=== PATIENT | female | born 1990 | race Caucasian/White ===

== ENCOUNTER 2018-09-29 23:01 | Emergency (ER) | payer OTHER, SELFPAY ==
[2018-09-29 23:12] VITALS: BP 118/71; PULSE 76; RESP 16; TEMP 36.6; O2SAT 97
--- NOTE | 2018-09-29 23:19 | ED.GENADUL_ITS ---
Discharge Plan Disposition Patient Disposition: HOME Condition: Stable Discharge Details Chief Complaint: Sorethroat Clinical Impression: Acute pharyngitis Primary Care Provider: Antonio Curtis ED Provider: David Tom Home Meds and New Rx's Prescriptions: No Action ranitidine HCl [Zantac] 300 MG tablet 300 mg PO BID Qty: 60 RF: 0 Discharge Instructions Instructions: Pharyngitis (ED) Medical Decision Making 28-year-old female with 2 days of sore throat. She is otherwise well, tolerating secretions, no change to voice. Rapid strep test obtained and negative. Discussed with patient that a small burst of anti-inflammatories will aid in decreasing her discomfort. As she is breast-feeding dexamethasone is not the best choice and will place her on 3 days of prednisone. She is stable and appropriate for discharge to home HPI General Mode of arrival: ambulatory . Date/Time Provider Initiated Documentation: 09/29/18 23:01 . Limitations to Documentation: no limitations . Information obtained by: patient . History of Present Illness 28 year old F presents to the emergency department with the chief complaint of Sore throat x2, described as moderate, Quality is described as dull and constant, and is localized to the mouth. Patient reports no radiation. Patient started experiencing this day(s) and it has been constant. No relieving factors improve symptom(s), No exacerbating factors reported . Patient notes no other symptoms.. Patient did receive the following treatments prior to arrival, none Related Data Home Medications Medication Instructions Recorded Confirmed ranitidine HCl [Zantac] 300 mg PO BID #60 tab 01/04/16 09/29/18 Previous Rx's Medication Instructions Recorded ranitidine HCl [Zantac] 300 mg PO BID #60 tab 01/04/16 Allergies Allergy/AdvReac Type Severity Reaction Status Date / Time No Known Allergies Allergy Unverified 09/29/18 23:15 General Stated Complaint: Sorethroat YAA: 4 Review of Systems Review of Systems No fever, no known sick contacts, no recent travel. 5 systems reviewed and otherwise negative [facility] Surgical History EGD - IV Sedation (01/04/16) Social History Smoking/Tobacco Use Status: Never Drug use: Never Do you feel safe at home: Yes Do you feel safe in your relationship?: Yes Exam Narrative Exam Narrative: GEN: awake, alert, oriented 3. Pleasant, well groomed, interactive. HEAD: Normocephalic, atraumatic ENT: Mucous membranes moist, oropharynx with erythematous tonsillar pillars, uvula midline, no asymmetry, External ear exam unremarkable, tympanic membranes pearlescent with good light reflex leo EYES: PERRL, EOMI NECK: Full ROM, no JOHNNY, no menigismus CHEST/RESP: Nontender, clear to auscultation bilateral, no wheeze/rhonchi/rales EXT: Full ROM, no edema, no rash Neuro: Grossly normal neurologic exam, conversant, interactive. Psych: Speech fluent, thoughts congruent, affect normal Course Vital Signs Temperature 36.6 C 09/29/18 23:12 Pulse 76 09/29/18 23:12 Respiratory Rate 16 09/29/18 23:12 Blood Pressure 118/71 09/29/18 23:12 Pulse Oximetry 97 09/29/18 23:12 Temperature 36.6 C 09/29/18 23:12 Temperature Source Skin 09/29/18 23:12 Pulse 76 09/29/18 23:12 Respiratory Rate 16 09/29/18 23:12 Respiratory Effort Non-Labored 09/29/18 23:14 Blood Pressure 118/71 09/29/18 23:12 Blood Pressure Position Sitting 09/29/18 23:12 Pulse Oximetry 97 09/29/18 23:12 Oxygen Delivery Method Room Air 09/29/18 23:12 Oxygen Flow Rate 0 09/29/18 23:12 Pain Level 8 09/29/18 23:12
[2018-09-29] MEDS: predniSONE 20 MG TAB 40 MG PO (23:43)
== END 2018-09-29 23:46 | disposition home or self-care (01) ==
PROVIDERS: Emergency Provider Emergency Medicine; PCP Specialist/Technologist Athletic Trainer
DX: J02.9 Acute pharyngitis, unspecified (principal)
CPT/HCPCS: 87880; 99283; 87081; J7512

== ENCOUNTER 2018-10-08 16:04 | Outpatient (REF) | payer OTHER, SELFPAY | END 2018-10-08 16:24 | LOC: NCHCN 16:04 | PROVIDERS: PCP Specialist/Technologist Athletic Trainer; Visit Provider Nurse Practitioner Family | DX: J03.90 Acute tonsillitis, unspecified (principal) | CPT/HCPCS: 87070 ==

== ENCOUNTER 2018-11-30 19:34 | Outpatient (REF) | payer OTHER, SELFPAY ==
[2018-11-30 19:52] LABS: Anion Gap 11.3 mmol/L (3-11); BUN 14 mg/dL (7-18); CO2 25.7 mmol/L (21.0-32.0); CREATININE 0.67 mg/dL (0.55-1.02); Calcium 8.9 mg/dL (8.5-10.1); Chloride 103 mmol/L (98-107); Cholesterol 181 mg/dL (50-200); Glucose 75 mg/dL (70-100); HDL Cholesterol 89 mg/dL (40-60); Potassium 3.9 mmol/L (3.5-5.1); Sodium 140 mmol/L (136-145)
[2018-11-30 20:10] LABS: Triglyceride < 25 mg/dL (30-150)
[2018-11-30 20:21] LABS: LDL CHOLESTEROL 82 mg/dL (<100)
== END 2018-11-30 19:54 ==
LOC: NCHCN 19:34
PROVIDERS: PCP Specialist/Technologist Athletic Trainer; Visit Provider Specialist/Technologist Athletic Trainer
DX: Z00.00 Encounter for general adult medical examination without abnormal findings (principal); Z13.220 Encounter for screening for lipoid disorders; Z13.228 Encounter for screening for other metabolic disorders
CPT/HCPCS: 80048; 80061; 83721

== ENCOUNTER 2019-01-01 07:10 | Day surgery (SDC) | payer OTHER, SELFPAY ==
--- NOTE | 2019-01-01 06:54 | W.PM.ENDDOP ---
Date of service: 01/01/19 Time of Service: 08:38 Endoscopy Report DATE OF PROCEDURE: 01/01/19 PRE-OP DIAGNOSIS: Hx of Moran's POST-OP DIAGNOSIS: same (Hiatal hernia and esophagitis) PROCEDURE: EGD with biopsies SURGEON: Carolina Berger ANESTHESIA: other (General/ ASA 2/Nestor Sow CRNA) ESTIMATED BLOOD LOSS: 3 PATHOLOGY: other (GE junction bx) COMPLICATIONS: None DISPOSITION: same day INDICATIONS: Mrs. Martell is a pleasant 28 year old female with a history of Moran's who was seen in the office for a surveillance EGD. Risks, benefits and complications have been reviewed. Complications include but are not limited to bleeding, pain, perforation, sore throat, aspiration, and adverse reaction to the medications. Questions were entertained and answered to their satisfaction and they wished to proceed. No guarantees were given or implied. FINDINGS: Hiatal hernia -sliding Esophagitis Moran's PROCEDURE DESCRIPTION: After informed consent was obtained the patient was take to the procedure room and placed in a supine position. Monitors were applied and a time out was done. The patients name, date of , procedure type, allergies to medications and metal in their body was reviewed. A bite block was placed and the patient was sedated. Once sedated and comfortable the gastroscope was advanced through the oropharynx which was grossly normal into the esophagus. The proximal and mid-esophagus were normal. In the distal esophagus there was inflammation noted. The scope was advanced into the stomach and through the pylorus into the 3rd portion of the duodenum. The duodenum was noted to be normal. The scope was retracted back into the stomach which was normal. There were no ulcers. The scope was retro-flexed. The cardia and fundus were noted to be normal. There was a hiatal hernia noted. The scope was retracted back into the esophagus and biopsies were done of the GE junction. There was inflammation noted. There were streaks of inflammation noted that measured 2 cm. The Z line was irregular. The GE junction was at 30 cm. The scope was removed and the patient was woken up and taken back to [facility] in stable condition. Follow up: 2 weeks. Patient is asymptomatic on Zantac. Depending on pathology I think she would benefit from pH study and manometry. She is young and may benefit from a anti-reflux procedure. I will discuss with her when she comes to see me in the office in 2 weeks.
--- NOTE | 2019-01-01 07:02 | W.PM.DSUDISC ---
Discharge Plan Disposition Patient Disposition: HOME Condition: Good Discharge Details Reason For Visit: hx of Moran's/ EGD Attending Provider: Carolina Berger Primary Care Provider: Antonio Curtis Home Meds and New Rx's Prescriptions: Continued ranitidine HCl [Zantac] 300 MG tablet 300 mg PO BID Qty: 60 RF: 0 Discharge Instructions Instructions: Upper Endoscopy (DC), Moran Esophagus (DC), Hiatal Hernia (DC) Additional Instructions: Findings: esophagitis and Hiatal hernia Follow up: 2 weeks Please call if you develop: fevers >101.5 Nausea or Vomiting Abdominal pain that is not transient DAY SURGERY UNIT POST ENDOSCOPY INSTRUCTIONS 1. Because there will be medication in your system for the next 24 hours, you may feel a little sleepy. Your coordination will be affected. Therefore: a. Do not drive or operate dangerous equipment for 24 hours. b. Do not drink alcohol beverages for 24 hours (not even beer). c. Plan to go home and rest for the day. 2. Generally there are no restrictions on your activity after a day or so has gone by, but you may feel a bit fatigued for a few days. 3 After you arrive home you may have a light meal and return to a normal diet as you can tolerate it without feeling sick to your stomach. 4. After surgery, you may feel pain or discomfort. This should be only transient, but if it persists please contact your doctor. 5. If there are any questions regarding the findings of your procedure, please feel free to contact your doctor. 6. If you are unable to contact your doctor with a problem, contact the hospital at [phone]. 7. Continue all your regular medications unless directed otherwise. I understand the above instructions and have no questions. Signature of Patient or Responsible Adult Escort Date/Time Name of Responsible Adult Escort Signature of Nurse Date/Time Activity:: Activity as Tolerated Diet:: As Tolerated Discharge Orders Discharge Orders: Discharge Order (Routine); Ordered 01/01/19 Ordered By: Carolina Berger DS: Diagnosis Discharge Diagnosis (1) EGD - IV Sedation: Status: None (2) Barretts esophagus: Status: Acute
[2019-01-01 07:35] VITALS: BP 106/67; PULSE 84; RESP 16; TEMP 36.4; O2SAT 98
[2019-01-01 07:38] VITALS: BP 106/67; PULSE 84; RESP 16; TEMP 36.4; O2SAT 98
[2019-01-01] MEDS: Lactated Ringers 1,000 ML 80 ML IV (07:55)
--- NOTE | 2019-01-01 08:40 | ESO_PTH ---
PATIENT: Rosenda Martell LOC: [facility] U#:[id number] AGE/SX: 28/F ROOM: RE01/01/[address]: Carolina Berger MD : 1990 BED: DIS: 01/01/2019 SPEC #: [id number] RECD: 01/01/19 12:52 STATUS: MARCO A REQ #: [id number] CHAYA: 01/01/19 08:[address]: Carolina Berger DEPT: Surgical Specimen RECD BY: Alba Iraheta ENTERED: 01/01/19 12:52 SP TYPE: Eso OTHR DR: Antonio Curtis Tissues: 1 - ESOPHAGUS BIOPSY Procedures: GROSS AND MICRO LEVEL 4 Comments: [id number]
[2019-01-01 09:25] VITALS: BP 105/63; PULSE 74; RESP 16; TEMP 36.4; O2SAT 99
== END 2019-01-01 09:55 | disposition home or self-care (01) ==
LOC: SUR 07:10
PROVIDERS: PCP Specialist/Technologist Athletic Trainer; Visit Provider Surgery
PROC: 0DJ68ZZ Inspection of Stomach, Via Natural or Artificial Opening Endoscopic (ICD-10-PCS; CPT 43235; principal; 2019-01-01 08:30)
DX: K22.70 Barrett's esophagus without dysplasia (principal); K21.0 Gastro-esophageal reflux disease with esophagitis; K44.9 Diaphragmatic hernia without obstruction or gangrene
CPT/HCPCS: 43239; 81025; 88305

== ENCOUNTER 2021-02-25 03:33 | Outpatient (CLI) | payer OTHER, SELFPAY ==
[2021-02-25 09:51] LABS: ALT 28 U/L (14-59); AST 15 U/L (15-37); Alkaline Phosphatase 90 U/L (46-116); Anion Gap 8.7 mmol/L (3-11); BUN 14 mg/dL (7-18); Bilirubin, Total 0.4 mg/dL (0.2-1.0); CO2 29.3 mmol/L (21.0-32.0); CREATININE 0.7 mg/dL (0.55-1.02); Chloride 103 mmol/L (98-107); Glucose 82 mg/dL (74-106); Potassium 4.2 mmol/L (3.5-5.1); Sodium 141 mmol/L (136-145); TSH (W/Ref FT4) 1.01 uIU/mL (0.36-3.74); Total Protein 7.3 g/dL (6.4-8.2)
== END 2021-02-25 03:34 | disposition home or self-care (01) ==
LOC: LBO 03:33
PROVIDERS: PCP Nurse Practitioner Family; Visit Provider Nurse Practitioner Family
DX: R74.8 Abnormal levels of other serum enzymes (principal)
CPT/HCPCS: 36415; 80053; 84443

== ENCOUNTER 2021-03-22 08:13 | Outpatient (CLI) | payer BC, SELFPAY ==
[2021-03-22 10:48] LABS: Source Nasal/Nares
[2021-03-22 14:39] LABS: COVID-19 PCR Negative (Negative)
== END 2021-03-22 08:14 | disposition home or self-care (01) ==
LOC: LBO 08:14
PROVIDERS: PCP Nurse Practitioner Family; Visit Provider Surgery
DX: Z20.822 Contact with and (suspected) exposure to COVID-19 (principal)
CPT/HCPCS: 87635

== ENCOUNTER 2021-05-21 01:25 | Outpatient (CLI) | payer BC, SELFPAY ==
[2021-05-21 11:49] LABS: Source Nasal/Nares
[2021-05-21 15:04] LABS: COVID-19 PCR Negative (Negative)
== END 2021-05-21 01:26 | disposition home or self-care (01) ==
LOC: LBO 01:25
PROVIDERS: PCP Nurse Practitioner Family; Visit Provider Surgery
DX: Z20.822 Contact with and (suspected) exposure to COVID-19 (principal)
CPT/HCPCS: 87635

== ENCOUNTER 2021-05-24 09:42 | Day surgery (SDC) | payer BC, SELFPAY ==
--- NOTE | 2021-05-24 06:53 | W.PREOPHP ---
Assessment and Plan Assessment and plan (1) GERD (gastroesophageal reflux disease): Status: Chronic Assessment and plan: Roesnda see me today to discuss another upper endoscopy.? She has had worsening reflux symptoms over the last few months.? In November she was switched to omeprazole 20 mg daily.? She takes this at night and this allows her to sleep.? She is still symptomatic during the day.? She has cut out acidic foods trying to improve her symptoms without much success.? Differential includes worsening reflux due to stress versus H. pylori infection.? Discussed repeating her EGD with biopsies. The patient is not vaccinated so we will test her for Covid and I have also asked her to quarantine between the time of her testing and the procedure. Risks, benefits and complications have been reviewed. Complications include but are not limited to bleeding, pain, perforation, sore throat, aspiration, and adverse reaction to the medications.? Questions were entertained and answered to their satisfaction and they wished to proceed. No guarantees were given or implied. EGD under sedation Qualifiers: Esophagitis presence: esophagitis presence not specified Qualified Code(s): K21.9 - Gastro-esophageal reflux disease without esophagitis (2) Moran's esophagus determined by biopsy: Status: Acute (3) Peptic reflux esophagitis: Status: Acute History of Present Illness Narrative: Rosenda is back to see me today because she has had worsening acid reflux symptoms.? The last time I saw her in 2018 she was noted to have some mild reflux and was asymptomatic with ranitidine 300 mg twice daily.? She eventually stopped the ranitidine because it was taken off the market and was switched over to famotidine 40 mg daily.? Over the last few months she has noted increased and reflux symptoms with continued heartburn during the day.? She was switched over to omeprazole 20 mg at night which does allow her to sleep but then she has symptoms during the day.? She has tried to switch her diet and remove acidic foods from it without much improvement in symptoms.? Her primary care physician did tell her that she could go up on the omeprazole to 20 mg twice daily but she has not done that yet.? She has no vomiting or nausea.? She has not had any changes in bowel habits.? She does complain of increased bloating and gas. No changes in her healths since she was last seen in February Review of Systems Constitutional Constitutional: Denies fever(s) and Denies headache(s) ENT Ears, Nose, Mouth, and Throat: Denies headache(s) Cardiovascular Cardiovascular: Denies chest pain, Denies irregular heart rhythm, Denies palpitations and Denies dyspnea Respiratory Respiratory: Denies cough and Denies dyspnea Gastrointestinal Gastrointestinal: Reports as per HPI Neurologic Neurologic: Denies headache(s) Endocrine Endocrine: Denies palpitations PFSH All Active Problems Elevated liver enzymes (Acute) GERD (gastroesophageal reflux disease) (Chronic) Moran's esophagus determined by biopsy (Acute ~2016) Peptic reflux esophagitis (Acute) Thoracic outlet syndrome (Acute) Trigeminal nerve disorder (Acute) Medical History Chronic headaches Enlarged thyroid Hyperemesis affecting , antepartum with each Surgical History EGD - IV Sedation (01/04/16) H/O esophagogastroduodenoscopy (~01/01/19) History of tubal ligation Social History Smoking/Tobacco Use Status: Never Smoking risk assessment performed?: Yes Alcohol Intake: current Alcohol Intake frequency: a few times a month Drug use: Never Substance use type: does not use Number of Children: 3 Current gender identity: female Do you feel safe at home: Yes Do you feel safe in your relationship?: Yes History History 3 Para Hx # Term Pregnancies 3 Multiple births Hx # Pregnancies Ectopic pregnancies AB induced Hx Number of Living Children AB spontaneous Meds Allergies and Home Medications Allergies Allergy/AdvReac Type Severity Reaction Status Date / Time No Known Allergies Allergy Verified 05/24/21 10:38 Home Medications Medication Instructions Recorded Confirmed Type multivitamin 1 tab PO DAILY 02/04/21 05/24/21 History omeprazole 20 mg capsule,delayed 20 mg PO DAILY 02/04/21 05/24/21 History release Exam Const General: cooperative, comfortable and no acute distress HENMT Head: normocephalic and atraumatic Resp Auscultation: clear to auscultation bilaterally Cardio Rate: regular rate Rhythm: regular rhythm
--- NOTE | 2021-05-24 06:59 | PDOC.DSDIS_ITS ---
Discharge Plan Disposition Patient Disposition: HOME Condition: Good Discharge Details Reason For Visit: EGD Attending Provider: Carolina Berger Primary Care Provider: Tatianna Galvin Home Meds and New Rx's Prescriptions: New omeprazole 40 mg capsule,delayed release(DR/EC) 40 mg PO DAILY Qty: 30 0RF Continued multivitamin Tablet 1 tab PO DAILY 0RF Discontinued omeprazole 20 mg capsule,delayed release(DR/EC) 20 mg PO DAILY 0RF Discharge Instructions Additional Instructions: Findings: inflammation of the esophagus Medication: Omeprazole 40 mg daily Please call if you develop: fevers >101.5 Nausea or Vomiting Abdominal pain that is not transient Rectal bleeding that is more then a tbsp A hard abdomen and inability to pass gas DAY SURGERY UNIT POST ENDOSCOPY INSTRUCTIONS Instructions for everyone who is given Anesthesia: For your safety, please do the following for the next 24 Hours: a. [address] not drive or operate dangerous equipment b. Do not drink alcohol beverages or use any recreational drugs for the first 24 hours or while taking pain medications. The medications in your body may have a reaction that can be dangerous. c. Do not make any important decisions or sign any important papers 1. Generally there are no restrictions on your activity after a day or so has gone by, but you may feel a bit fatigued for a few days. 2. After you arrive home you may have a light meal and return to a normal diet as you can tolerate it without feeling sick to your stomach. 3. After surgery, you may feel pain or discomfort. This should be only transie nt, but if it persists please contact your doctor. 4. If there are any questions regarding the findings of your procedure, please feel free to contact your doctor. 6. If you are unable to contact your doctor with a problem, contact the hospital at [phone]. 7. Continue all your regular medications unless directed otherwise. I understand the above instructions and have no questions. Signature of Patient or Responsible Adult Escort Date/Time Name of Responsible Adult Escort Signature of Nurse Date/Time Activity:: Activity as Tolerated Diet:: As Tolerated Discharge Orders Discharge Orders: Discharge Order (Routine); Ordered 05/24/21 Ordered By: Carolina Berger DS: Diagnosis Discharge Diagnosis (1) GERD (gastroesophageal reflux disease): Status: Chronic (2) Moran's esophagus determined by biopsy: Status: Acute (3) Peptic reflux esophagitis: Status: Acute
--- NOTE | 2021-05-24 07:00 | W.PM.ENDDOP ---
Date of service: 05/24/21 Time of Service: 12:04 Endoscopy Report DATE OF PROCEDURE: 05/24/21 PRE-OP DIAGNOSIS: Hx of Moran's POST-OP DIAGNOSIS: other (esophagitis, Moran's, Hiatal Hernia) PROCEDURE: EGD with biopsies SURGEON: Carolina Berger ANESTHESIA TYPE: General:No Airway ESTIMATED BLOOD LOSS: 3 PATHOLOGY: other (Gastric bx, GE junction and Distal esophagus bx) COMPLICATIONS: None DISPOSITION: same day INDICATIONS: Rosenda see me today to discuss another upper endoscopy.? She has had worsening reflux symptoms over the last few months.? In November she was switched to omeprazole 20 mg daily.? She takes this at night and this allows her to sleep.? She is still symptomatic during the day.? She has cut out acidic foods trying to improve her symptoms without much success.? Differential includes worsening reflux due to stress versus H. pylori infection.? Discussed repeating her EGD with biopsies. The patient is not vaccinated so we will test her for Covid and I have also asked her to quarantine between the time of her testing and the procedure. Risks, benefits and complications have been reviewed. Complications include but are not limited to bleeding, pain, perforation, sore throat, aspiration, and adverse reaction to the medications.? Questions were entertained and answered to their satisfaction and they wished to proceed. No guarantees were given or implied. EGD under sedation FINDINGS: mild inflammation of the stomach and inflammation of the GE junction and distal esophagus Small Hiatal hernia PROCEDURE DESCRIPTION: After informed consent was obtained the patient was take to the procedure room and placed in a supine position. Monitors were applied and a time out was done. The patients name, date of , procedure type, allergies to medications and metal in their body was reviewed. A bite block was placed and the patient was sedated. Once sedated and comfortable the gastroscope was advanced through the oropharynx which was grossly normal into the esophagus. The proximal and mid-esophagus were normal. In the distal esophagus there was inflammation noted. The scope was advanced into the stomach and through the pylorus into the 3rd portion of the duodenum. The duodenum was noted to be normal. The scope was retracted back into the stomach and biopsies were done to rule out H. pylori. There were no ulcers. The scope was retroflexed. The cardia and fundus were noted to be normal. There was a hiatal hernia noted. The scope was retracted back into the esophagus and biopsies were done of the GE junction to rule out Moran's. The Z line was irregular. The GE junction was at 30 cm. The scope was removed and the patient was woken up and taken back to [facility] in stable condition.
[2021-05-24 10:40] VITALS: BP 113/66; PULSE 78; RESP 16; TEMP 36.7; O2SAT 98
[2021-05-24] MEDS: Lactated Ringers 1,000 ML 80 ML IV (11:18)
--- NOTE | 2021-05-24 11:39 | W.ANESPRE ---
General Info Date of Service Date Performed: 05/24/21 Height: 5 ft 2 in Weight: 82.5 kg Body Mass Index (BMI): 33.3 Surgical Procedure: Operation Date: 05/24/21 11:35 Proposed Procedure Side Surgeon p Gastroscopy Carolina Berger MD Meds Allergies and Home Medications Allergies Allergy/AdvReac Type Severity Reaction Status Date / Time No Known Allergies Allergy Verified 05/24/21 10:38 Home Medication Medication Instructions Recorded multivitamin 1 tab PO DAILY 02/04/21 omeprazole 20 mg capsule,delayed 20 mg PO DAILY 02/04/21 release Current Visit Medications: Current Medications Generic Name Dose Route Start Last Admin Trade Name Freq PRN Reason Stop Dose Admin Hyoscyamine Sulfate 0.125 mg 05/24/21 07:01 Hyoscyamine 0.125 Mg Sl/Oral/Chew SL 05/24/21 16:00 DIRECTED PRN Ringer's Solution 1,000 mls @ 80 mls/hr 05/24/21 06:00 05/24/21 11:18 IV 06/20/21 23:59 80 mls/hr INFUSION ERASMO Administration IV Miscellaneous Supplies 1 each 05/24/21 06:00 Iv Access IV 06/20/21 23:59 DIRECTED ERASMO Ondansetron HCl 4 mg 05/24/21 07:01 Ondansetron 4 Mg/2 Ml Vial IVP 05/24/21 16:00 Q4H PRN PRN Nausea / Vomiting Sodium Chloride 0 ml 05/24/21 06:00 Normal Saline Flush 10 Ml Syr IV 06/20/21 23:59 PRN PRN Sodium Chloride 0 ml 05/24/21 06:00 Normal Saline 10 Ml Vial IJ 06/20/21 23:59 DIRECTED PRN Sterile Water 0 ml 05/24/21 06:00 Water,Injection,Sterile 10 Ml Vial IJ 06/20/21 23:59 DIRECTED PRN PFSH Active Problems Active Problems: Problem Status Onset Code Elevated liver enzymes R74.8 GERD (gastroesophageal reflux disease) K21.9 Moran's esophagus determined by biopsy ~2015 K22.70 Peptic reflux esophagitis K21.0 Thoracic outlet syndrome G54.0 Trigeminal nerve disorder G50.9 Medical History Medical History Chronic headaches Enlarged thyroid Hyperemesis affecting , antepartum with each Surgical History Surgical History EGD - IV Sedation (01/04/16) H/O esophagogastroduodenoscopy (~01/01/19) History of tubal ligation Tobacco Smoking/Tobacco Use Status: Never Alcohol Alcohol Intake: current Alcohol intake frequency: a few times a month Substance Use Substance use: Never Substance use type: does not use Prental History History 3 Para Hx # Term Pregnancies 3 Multiple births Hx # Pregnancies Ectopic pregnancies AB induced Hx Number of Living Children AB spontaneous Vital Signs and Lab Results Vital Signs Most Recent Vital Signs in EMR: Most Recent Vital Signs Temp Pulse Resp BP Pulse Ox 36.7 C 78 16 113/66 98 05/24/21 10:40 05/24/21 10:40 05/24/21 10:40 05/24/21 10:40 05/24/21 10:40 Point of Care Results Point of Care Results: POC- Test(urine) Negative 05/24/21 11:20 Lab Results Blood Type / Crossmatch: No Data to Display Complete Blood Count: No Data to Display Complete Metabolic Panel: No Data to Display Liver Function Panel: No Data to Display Coagulation Panel: No Data to Display Cardiac Panel: No Data to Display Arterial Blood Gas: No Data to Display Venous Blood Gas: No Data to Display Pancreas Panel: No Data to Display Thyroid Panel: No Data to Display Infectious Disease: Coronavirus (COVID-19)(PCR) Negative (Negative) 05/21/21 09:41 05/21/21 Coronavirus 2019 Source Nasal/Nares 05/21/21 09:41 05/21/21 Blood Cultures: No Data to Display Toxicology Panel: No Data to Display Panel: No Data to Display Anesthesia Assessment and Plan Anesthesia History Personal History: No History of Anesthesia Complications Family History: No Family History of Anesthesia Complications Exercise Tolerance Exercise Tolerance: Metabolic Equivalents>4 Pertinent Negatives Pertinent Negatives: No Major Cardiovascular Symptoms or Complaints, No Major Pulmonary Symptoms or Complaints and No History of CVA/TIA Cardiac & Pulmonary Exam Cardiac Exam: Normal S1/S2 Heart Sounds Pulmonary Exam: Clear Bilateral Breath Sounds Implantable Cardiac Device Does patient have a Pacemaker or an ICD?: No Airway Exam Known Difficult Airway: No Mallampati Class: 3 Mouth Opening: Normal (> 3cm) Thyromental Distance: Greater than 3 cm Neck Range of Motion: Full ROM Neck Circumference: Normal Teeth Condition: Normal Dentition ASA Classification ASA Score: ASA 2 Emergency Case?: No NPO Status NPO Status: NPO Clears >2 hours, Solids >8 hours Status Status: Negative HCG Anesthesia Plan Resuscitation Status: Full Code Anesthesia Technique: General Anesthesia Airway Planned: Natural Airway Monitors Used: Standard Monitors and Central Line
[2021-05-24 11:43] VITALS: BMI 33.3
--- NOTE | 2021-05-24 11:56 | STOM_PTH ---
PATIENT: Rosenda Martell LOC: [facility] U#:[id number] AGE/SX: 30/F ROOM: RE05/24/[address]: Carolina Berger MD : 1990 BED: DIS: 05/24/2021 SPEC #: [id number] RECD: 05/24/21 12:55 STATUS: MARCO A RE #: [id number] CHAYA: 05/24/21 11:[address]: Carolina Berger DEPT: Surgical Specimen RECD BY: Alba Iraheta ENTERED: 05/24/21 12:56 SP TYPE: STOMACH OTHR DR: Tatianna Galvin Tissues: 1 - STOMACH BIOPSY 2 - ESOPHAGUS BIOPSY 3 - ESOPHAGUS BIOPSY Procedures: GROSS AND MICRO LEVEL 4 Comments: [id number]
[2021-05-24 12:10] VITALS: BP 105/70; PULSE 104; RESP 18; TEMP 36.7; O2SAT 95
[2021-05-24 12:38] VITALS: BP 111/74; PULSE 76; RESP 16; TEMP 36.6; O2SAT 99
--- NOTE | 2021-05-24 13:20 | W.ANESPOSTOP ---
Postoperative Evaluation Date, Time and Location Date Performed: 05/24/21 Time Performed: 12:50 Patient Location: Day Surgery Unit Vital Signs Most Recent Imported Vital Signs: Most Recent Vital Signs Temp Pulse Resp BP Pulse Ox 36.6 C 76 16 111/74 99 05/24/21 12:38 05/24/21 12:38 05/24/21 12:38 05/24/21 12:38 05/24/21 12:38 Pain Score Most Recent Pain Score: Most Recent Pain Score Pain Level 0 05/24/21 12:38 Assessment Mental Status: Awake (Alert & Oriented to Patient Baseline) Airway and Respiratory Function: Patent airway with normal (patient baseline) respiratory exam Cardiovascular Function: Hemodynamically Stable Hydration Status: Adequately Hydrated Nausea & Vomiting: No Nausea or Vomiting Pain: Pt. Denies Any Pain Peripheral Nerve Block: Patient did not receive a nerve block
== END 2021-05-24 12:52 | disposition home or self-care (01) ==
LOC: SUR 09:43
PROVIDERS: PCP Nurse Practitioner Family; Visit Provider Surgery
PROC: 0DJ68ZZ Inspection of Stomach, Via Natural or Artificial Opening Endoscopic (ICD-10-PCS; CPT 43235; principal; 2021-05-24 11:30)
DX: K21.9 Gastro-esophageal reflux disease without esophagitis (principal); K44.9 Diaphragmatic hernia without obstruction or gangrene; K20.90 Esophagitis, unspecified without bleeding; K22.89 Other specified disease of esophagus
CPT/HCPCS: 43239; 88305; J2001; J2405

== ENCOUNTER 2024-11-26 10:22 | Outpatient (CLI) | payer SELFPAY ==
--- NOTE | 2024-11-26 | DI.RAD_ITS ---
Exam(s) XR FOOT RT COMPLETE EXAM: XR FOOT RT COMPLETE CLINICAL HISTORY: PAIN IN RIGHT FOOT, [id number]. TECHNIQUE: 2D digital imaging was performed. Three views. COMPARISON: No exams were available for comparison FINDINGS: BONES: No acute fracture is present. No bony destructive lesion is seen. Tiny plantar calcaneal spur. Small enthesophyte at Achilles insertion. JOINTS: No dislocation present. SOFT TISSUE: Normal. IMPRESSION: Small heel spurs. No acute abnormality. DATA REPOSITORY: RADIATION DOSE DELIVERED:
== END 2024-11-26 10:42 ==
LOC: DI 10:23
PROVIDERS: PCP Nurse Practitioner Family; Visit Provider Nurse Practitioner Family
DX: M79.671 Pain in right foot (principal); M77.31 Calcaneal spur, right foot
CPT/HCPCS: 73630